=== PATIENT | female | born 1940 | race Hispanic/Latino ===

== ENCOUNTER 2018-04-08 10:15 | Outpatient (CLI) | payer MEDICARE | END 2018-04-08 10:16 | disposition home or self-care (01) | LOC: BICRAD 10:15 | PROVIDERS: ATTEND Psychiatry & Neurology Psychiatry | DX: J90 Pleural effusion, not elsewhere classified (principal) | CPT/HCPCS: 71046 ==

== ENCOUNTER 2018-12-16 19:42 | Emergency (ER) | payer MEDICARE ==
--- NOTE | 2018-12-16 20:55 | CT ---
CT OF HEAD NONCONTRAST 12/16/18 INDICATION: Fall. Head injury with pain. FINDINGS: There is mild generalized atrophy. The ventricular system is age appropriate in size. Evidence of mil d chronic ischemic disease is seen within the cerebral white matter. IMPRESSION: No acute intracranial hemorrhage or mass effect. Evidence of mild chronic ischemic disease. POS: [facility]
--- NOTE | 2018-12-16 22:59 | CT ---
CERVICAL SPINE CT NONCONTRAST; 12/16/18 INDICATION: Fall with neck injury. FINDINGS: There is incidental note of a spiculated nodule of the right upper lobe occupying the right lung apex with a craniocaudal dimension of approximately 2.3 cm, which is indicative of malignancy. Evaluation of the cervical spine revealed no acute compression fracture or malalignment. Craniocervic al junction is intact. There is mild degenerative change, typical for patient's age, involving the ce rvical spine. Evidence of a noncalcified right paracentral disc protrusion is seen at C6-7 level with mild effacement of the contents of the vertebral canal. There is subtle linear lucency involving the spinous process of T3, incompletely evaluated. Finding i s symmetric, not well delineated on axial views and does not reveal a significant degree of periostea l irregularity. Finding could relate to partially imaged vascular channels. IMPRESSION: 1. No acute fracture of cervical spine. 2. Incidental spiculated pulmonary nodule of right upper lobe. A nonemergent pulmonary medicine consultation, as followup, is warranted for further assessment. 3. Linear lucencies of the posterior elements of T3, as discussed above. Recommend correlation w ith physical exam to exclude evidence of acute pain, as findings are not definitive for fracture on t he basis of this exam. Exam results coveyed via telephone to Mark Hernandez, 2055 hrs, 12/16/18. POS: [facility]
== END 2018-12-16 22:25 | disposition home or self-care (01) ==
LOC: ERS 19:42
DX: S00.03XA Contusion of scalp, initial encounter (principal); I48.91 Unspecified atrial fibrillation; R91.1 Solitary pulmonary nodule; E78.5 Hyperlipidemia, unspecified; R79.89 Other specified abnormal findings of blood chemistry; Z79.82 Long term (current) use of aspirin; Z79.899 Other long term (current) drug therapy; W18.09XA Striking against other object with subsequent fall, initial encounter
CPT/HCPCS: 70450; 72125

== ENCOUNTER 2018-12-20 14:20 | Outpatient (CLI) | payer MEDICARE ==
--- NOTE | 2018-12-20 16:15 | CT ---
CT CHEST PERFORMED WITH INTRAVENOUS CONTRAST ENHANCEMENT: HISTORY: Right upper lobe pulmonary nodule noted on recent CT cervical spine. COMPARISON: CT cervical spine from 12/16/2018. FINDINGS: There is a right upper lobe slightly lobulated lung mass. It measures 2.2 cm in maximum dimension. This is suspicious for a neoplastic process. There is a second soft tissue nodule, which is seen as a slightly lobulated nodule, measuring approximately 12 mm in maximum length, along the right heart b order, near the junction of the right atrium with the inferior vena cava. There is no significant me diastinal or hilar adenopathy. No significant axillary adenopathy is seen. There are multiple small hypodensities within the liver, predominantly within the left lobe, felt to most likely represent small cysts. The right and left adrenal glands are normal in appearance. IMPRESSION: Right upper lobe lung mass, highly suspicious for neoplasm. In addition, there is a second soft tiss ue nodular density along the right heart border, near the junction of the right atrium with the infer ior vena cava, which could represent a second neoplasm. Further evaluation with PET scan would proba bimal be beneficial in seeing if this second lesions shows activity, as well as the right upper lobe ma ss. POS: [facility]
[2018-12-20] MEDS ORDERED: Iopamidol 370 76% 100 ML VIAL ONE (17:03)
== END 2018-12-20 14:21 | disposition home or self-care (01) ==
LOC: CT 14:20
PROVIDERS: ATTEND Family Medicine
DX: R91.1 Solitary pulmonary nodule (principal); R91.8 Other nonspecific abnormal finding of lung field; J98.4 Other disorders of lung
CPT/HCPCS: 71260; 82565; Q9967

== ENCOUNTER 2018-12-24 08:46 | Outpatient (CLI) | payer MEDICARE ==
--- NOTE | 2018-12-24 12:13 | PET ---
RADIONUCLIDE PET SCAN WITH CT ATTENUATION CORRECTION AND SPECT IMAGING: HISTORY: Lung nodules. FINDINGS: Physiologic uptake of radiotracer throughout the enteric system and along each urinary tract. At the right apex, maximum SUV activity associated with the suspicious nodule is 1.5. At the medial aspect of the right lower lobe, abutting the upper inferior vena cava, maximum SUV is 2 .2. Adrenal glands are unremarkable. No other areas of abnormal activity are apparent. IMPRESSION: While there is slight increase in uptake associated with the right upper lobe and right lower lobe no dules, the maximum SUV activity remains below the threshold for confident diagnosis of neoplasm. The lesion, especially in the right lower lobe, shows CT characteristics (spiculation) that are very susp icious. The size and position of the lesions would not allow for percutaneous image guided biopsy. Pl ease consider follow-up CT in 3-4 months for close evaluation. Should the lesions enlarge, repeat PET scan would be considered. POS: [facility]
== END 2018-12-24 08:47 | disposition home or self-care (01) ==
LOC: PET 08:46
PROVIDERS: ATTEND Internal Medicine Pulmonary Disease
DX: R91.1 Solitary pulmonary nodule (principal)
CPT/HCPCS: 78815; A9552

== ENCOUNTER 2019-04-22 10:45 | Outpatient (CLI) | payer MEDICARE ==
--- NOTE | 2019-04-22 11:38 | ULT ---
THYROID ULTRASOUND: CLINICAL HISTORY: Thyroid Nodule COMPARISON:None FINDINGS: Right thyroid lobe: Measures 3.8 x 1 x 1.4 cm. Left thyroid lobe: Measures 3.8 x 0.9 x 1.2 cm. Isthmus: Measures 2 mm. Nodules: Subcentimeter cystic nodules are seen within each thyroid lobe, upper to mid aspects. There are punctate foci of decreased echogenicity, 2 to 3 mm in size, too small to definitively characterize. IMPRESSION: Scattered subcentimeter cystic and punctate hypoechoic foci of the thyroid lobes. No dominant suspicious nodule otherwise depicted.
== END 2019-04-22 10:46 | disposition home or self-care (01) ==
LOC: SCSULT 10:45
PROVIDERS: ATTEND Internal Medicine Cardiovascular Disease
DX: E04.1 Nontoxic single thyroid nodule (principal); E07.9 Disorder of thyroid, unspecified
CPT/HCPCS: 76536

== ENCOUNTER 2019-05-10 09:23 | Outpatient (CLI) | payer MEDICARE ==
--- NOTE | 2019-05-10 09:45 | BD ---
DEXA BONE DENSITOMETRY: (Dual energy x-ray absorptiometry) DATE: 05/10/2019 HISTORY: 78-year old female for age-related, post-menopausal, osteoporosis screening. weight: 107 lbs height: 62 in. age of menopause: 63 COMPARISON: None available. FINDINGS: The bone mineral density (BMD) is given in grams per square centimeter (g/cm2): LUMBAR SPINE: BMD (g/cm^2) T score Z score L1: 0.849 -1.3 1.1 L2: 0.891 -1.2 1.4 L3: 0.982 -0.9 1.8 L4: 0.880 -1.6 1.2 Total: 0.901 -1.3 1.3 HIP: BMD (g/cm^2) T score Z score Femoral neck: 0.670 -1.6 0.5 Total: 0.795 -1.2 0.8 IMPRESSION: 1.) The mean bone mineral density of the lumbar spine is osteopenic. Fracture risk is increased. 2) The bone mineral density of the femoral neck is osteopenic. Fracture risk is increased.
== END 2019-05-10 09:24 | disposition home or self-care (01) ==
LOC: BICMAMMO 09:23
PROVIDERS: ATTEND Family Medicine
DX: Z13.820 Encounter for screening for osteoporosis (principal); E28.39 Other primary ovarian failure; M85.89 Other specified disorders of bone density and structure, multiple sites; Z78.0 Asymptomatic menopausal state
CPT/HCPCS: 77080

== ENCOUNTER 2019-06-01 14:12 | Outpatient (CLI) | payer MEDICARE ==
[~2019-06-01 14:12] MED LIST: ISOVUE-370 76%-LOCM 1 ML ONE
--- NOTE | 2019-06-01 16:40 | CT ---
CT CHEST WITH CONTRAST: 06/01/19 HISTORY: Lung nodule. COMPARISON: PET CT 12/24/18. CT chest 12/20/18. FINDINGS: No significant interval size increase of the right upper lobe and right lower lobe nodules. The centr al low attenuation within the nodules themselves suggestive of mucus trapping within the dilated bron chi. There are smaller nodules within the left lower lobe, axial image 108 measuring 5 mm as well as within the right lower lobe measuring 4 mm, axial image 110. No pneumothorax. No effusion. Mild cylin drical bronchiectasis within the lower lobes. No adenopathy. Numerous hypodensities left lobe of the liver and right lobe of the liver are similar. No acute osseous abnormality. No displaced rib fracture. No thoracic spine compression deformity. IMPRESSION: 1. Similar appearance of the nodule in the right upper and right lower lobes which have low atte nuation essentially suggesting mucoid impaction within dilated bronchi which may be sequela of bronch ial partial atresia/stenosis. As a safe measure, follow-up CT in six months recommended. 2. Unchanged smaller sub 6 mm nodules within the right and left lungs. 3. Mild cylindrical bronchiectasis. POS: [facility]
== END 2019-06-01 14:13 | disposition home or self-care (01) ==
LOC: BICCT 14:12
PROVIDERS: ATTEND Internal Medicine Pulmonary Disease
DX: R91.8 Other nonspecific abnormal finding of lung field (principal); J47.9 Bronchiectasis, uncomplicated
CPT/HCPCS: 71260; 82565; Q9966

== ENCOUNTER 2019-12-23 12:49 | Outpatient (CLI) | payer MEDICARE ==
[~2019-12-23 12:49] MED LIST changes: -ISOVUE-370 76%-LOCM 1 ML ONE; +Iopamidol-370 76% 500 ML 1 ML ONE
--- NOTE | 2019-12-23 14:49 | CT ---
CHEST CT WITH CONTRAST: HISTORY: Lung nodule. COMPARISON: 06/01/2019 and 12/20/2018. FINDINGS: Lower neck and mediastinum: No masses or lymphadenopathy. Axilla: No lymphadenopathy Heart: Upper normal heart size. No significant pericardial fluid. Visualized aorta has a normal calib er. No periaortic fat stranding. Upper abdomen: Indeterminate hypodensities scattered throughout the liver, incompletely evaluated. Trachea and central bronchi are patent. No consolidation. Dependent atelectatic changes. No pleural effusion or pneumothorax. Lung nodules: Right lun separate adjacent solid nodules in the right lung apex measuring 0.6 x 0.7 cm and 1.0 x 0.6 cm. There is persistent low attenuation suggesting mucus trapping within a dilated bronchi. Stable 0.3 x 0.6 cm solid nodule in the posterior right upper lobe. Stable 0.3 x 0.4 cm solid nodule in the middle lobe. Stable solid pleural-based nodule in the right lower lobe measuring 0.4 x 0.4 cm. Additional nodules in the right lung are not appreciated. Left lung: Stable 0.4 x 0.2 cm solid nodule in the left upper lobe. Stable solid nodule in the left l ower lobe measuring 0.6 x 0.6 cm. Additional nodules in the left lung are not appreciated. IMPRESSION: Stable left and right lung parenchymal nodules. There is 1 year of stability. Transcribed Date/Time: 12/23/2019 3:06 PM
== END 2019-12-23 12:50 | disposition home or self-care (01) ==
LOC: BICCT 12:49
PROVIDERS: ATTEND Internal Medicine Pulmonary Disease
DX: R91.8 Other nonspecific abnormal finding of lung field (principal)
CPT/HCPCS: 71260; 82565; Q9967

== ENCOUNTER 2020-07-06 08:20 | Outpatient (CLI) | payer MEDICARE ==
--- NOTE | 2020-07-06 10:08 | CT ---
CT chest with IV contrast HISTORY: Lung nodules. Follow-up. COMPARISON: Multiple exams back to 12/20/2018. FINDINGS: The nodule at the right apex with slightly irregular/spiculated margins is unchanged from t he 12/20/2018 study in size and appearance. It measures up to 2.2 cm length by 0.9 cm diameter. Tiny nodules within the right middle lobe, posterolateral aspect of the right lower lobe, and lateral aspe ct of the left upper lobe are also stable. No new parenchymal masses evident. Nodular scarring within the right lower lobe adjacent to the right atrium is stable. No pleural fluid, pneumothorax, or mediastinal adenopathy. Within the partially visualized upper abdomen, the gallbladder surgically absent. Cysts of the liver and left kidney are stable. IMPRESSION : Stable CT appearance of the right upper lobe nodule and other chest/abdomen findings. (Dating back to 12/20/2018).
[2020-07-06] MEDS ORDERED: Iopamidol-370 76% 500 ML 1 ML ONE (14:14)
== END 2020-07-06 08:21 | disposition home or self-care (01) ==
LOC: BICCT 08:20
PROVIDERS: ATTEND Internal Medicine Pulmonary Disease
DX: R91.1 Solitary pulmonary nodule (principal)
CPT/HCPCS: 71260; 82565; Q9967

== ENCOUNTER 2020-12-25 09:35 | Outpatient (CLI) | payer MEDICARE ==
[2020-12-25] MEDS ORDERED: Iopamidol 370 76% 100 ML VIAL ONE (10:29)
--- NOTE | 2020-12-25 13:30 | CT ---
CT CHEST WITH CONTRAST: INDICATION: Followup lung nodule. COMPARISON: Comparison is made to CT chest of 07/06/2020. FINDINGS: There is a bilobed nodule in the right upper lobe which is stable in appearance. The maximal cranioc audal dimension today measured at 2.0 cm, unchanged. A small 4 mm nodule anterior right middle lobe is stable. A 4-5 mm nodule peripheral right lower lobe image 68, stable. Small calcified nodule 4 mm posteromed ial right lower lobe is stable. A noncalcified nodule seen in the same plane in the right lower lobe measuring in the 4 mm range is stable. Review of the left lung reveals a new ground-glass opacity in the left upper lobe seen on axial image 41 measuring approximately 8 mm. Stranding in the lingula is stable. There is scattered nodularity in the lingula which appears stabl e. There is a 4-5 mm nodule in the left upper lobe peripherally seen on image 40 which is stable. Some tiny nodularity in the left lower lobe peripherally is unchanged. A 5 mm nodule in the posterior left lower lobe seen on image 63 is unchanged. Both lungs again show interstitial thickening and scattered lower lobe stranding which his unchanged. Mediastinum is unremarkable. Thoracic aorta and pulmonary arteries are well opacified. No evidence of dissection, aneurysm, or proximal pulmonary embolus. No evidence of adenopathy. Images through t he upper abdomen again show cystic lesions in the left lobe of the liver which have been previously n oted and are stable. Osseous structures unremarkable. IMPRESSION: 1. There is a new ground-glass nodule in the left upper lobe as described above. 2. Otherwise, all the nodular and parenchymal opacities described above appear stable from the prior study. POS: [facility]
== END 2020-12-25 09:36 | disposition home or self-care (01) ==
LOC: BICCT 09:35
PROVIDERS: ATTEND Internal Medicine Pulmonary Disease
DX: R91.1 Solitary pulmonary nodule (principal); R91.8 Other nonspecific abnormal finding of lung field
CPT/HCPCS: 71260; 82565; Q9967

== ENCOUNTER 2021-12-29 21:07 | Emergency (ER) | payer MEDICARE ==
[2021-12-29 22:06] LABS: #Basophils 0.1 thou/uL (0.0-0.2); #Eosinphils 0.1 thou/uL (0.0-0.7); #Lymphocytes 1.4 thou/uL (1.20-3.40); #Monocytes 1.1 thou/uL (0.11-0.59); #Neutrophils 7.3 thou/uL (1.40-6.50); %Basophils 0.6 % (0.0-1.0); %Eosinophils 0.9 % (0.0-10.0); %Lymphocytes 13.7 % (21.0-51.0); %Monocytes 10.7 % (0.0-10.0); %Neutrophils 74.1 % (42.0-75.0); Mean Corpuscular Hemoglobin 34.7 pg (27.0-31.0); Mean Corpuscular Volume 99.4 fL (78.0-98.0); Mean Platelet Volume 7.3 fL (7.4-10.4); Platelet Count 272 thou/uL (130-400); RBC Distribution Width 11.6 % (11.5-14.5); Red Blood Cell (RBC) Count 3.46 mill/uL (4.20-5.40); White Blood Cell (WBC) Count 9.9 thou/uL (4.8-10.8)
[2021-12-29 22:20] LABS: Bilirubin Negative (Negative); Blood, Urine Negative (Negative); Clarity Clear (Clear); Glucose, Urine (Dipstick) Normal (Negative); Ketone, Urine Negative (Negative); Leukocyte Negative Leu/uL (Negative); Nitrite Negative (Negative); Protein, Urine (Dipstick) Negative (Neg-Trace); Specific Gravity, Urine 1.023 (1.002-1.036); Urobilinogen Normal mg/dL (Less than 2)
[2021-12-29 22:27] LABS: ALT (SGPT) 14 U/L (8-55); AST (SGOT) 21 U/L (5-34); Albumin 4.1 g/dL (3.4-4.8); Alkaline Phosphatase 25 U/L (40-110); Anion Gap 13 mmol/L (10-20); BUN (Urea Nitrogen) 33 mg/dL (9.8-20.1); Bilirubin, Total 0.4 mg/dL (0.2-1.2); Calc. Creatinine Clearance 0 mL/min (70-130); Calcium 9.5 mg/dL (7.8-10.44); Carbon Dioxide 25 mmol/L (23-31); Chloride 106 mmol/L (98-107); Globulin 2.2 g/dL (2.4-3.5); Glucose 97 mg/dL (83-110); Lipase 39 U/L (8-78); Potassium 3.7 mmol/L (3.5-5.1); Protein, Total 6.3 g/dL (5.8-8.1); Sodium 140 mmol/L (136-145)
== END 2021-12-30 00:17 | disposition home or self-care (01) ==
LOC: ERS 21:07
DX: S00.03XA Contusion of scalp, initial encounter (principal); S00.83XA Contusion of other part of head, initial encounter; F03.90 Unspecified dementia, unspecified severity, without behavioral disturbance, psychotic disturbance, mood disturbance, and anxiety; E78.5 Hyperlipidemia, unspecified; E78.00 Pure hypercholesterolemia, unspecified; W18.30XA Fall on same level, unspecified, initial encounter
CPT/HCPCS: 51701; 70450; 71045; 80053; 81003; 83690; 84484; 85025; 93005